=== PATIENT | male | born 1985 | race American Indian/Alaskan Native ===

== ENCOUNTER 2020-08-30 10:35 | Emergency (ER) | payer SELFPAY ==
--- NOTE | 2020-08-30 10:56 | Emergency Department Report ---
ED General Adult HPI - General Stated complaint: RT HAND INJURY Time Seen by Provider: 08/30/20 10:54 - History of Present Illness Initial comments: 35-year-old -[place] male patient presents with complaints of right hand pain after a fall injury yesterday. He rates his current pain is 8/10 in severity and states it worsens with movement and to touch. He denies any numbness/tingling/weakness in his hand or decreased range of motion. - Related Data Previous Rx's Medication Instructions Recorded Last Taken Type Diclofenac Sodium 75 mg PO BID PRN #14 tablet. 08/30/20 Unknown Rx ED Review of Systems ROS: Stated complaint: RT HAND INJURY Other details as noted in HPI Musculoskeletal: joint swelling, arthralgia Skin: denies: change in color Neurological: denies: numbness, paresthesias ED Past Medical Hx - Medications Home Medications: Home Medications Medication Instructions Recorded Confirmed Last Taken Type Diclofenac Sodium 75 mg PO BID PRN #14 tablet. 08/30/20 Unknown Rx ED Physical Exam - General General appearance: alert, in no apparent distress - Head Head exam: Present: atraumatic, normocephalic - Eye Eye exam: Present: normal appearance - ENT ENT exam: Present: mucous membranes moist - Extremities Exam Extremities exam: Present: other (Mild swelling with tenderness to palpation noted to the right fourth and fifth metacarpals without overlying erythema or bruising noted; patient has normal sensation, normal profusion, and normal range of motion of the fingers and palm) - Neurological Exam Neurological exam: Present: alert, oriented X3, normal gait - Psychiatric Psychiatric exam: Present: normal affect, normal mood - Skin Skin exam: Present: warm, dry, intact, normal color. Absent: rash ED Course Vital Signs 08/30/20 11:29 Temperature 98.5 F Pulse Rate 76 Respiratory 18 Rate Blood Pressure 168/94 [Right] O2 Sat by Pulse 96 Oximetry ED Medical Decision Making - Radiology Data Radiology results: report reviewed RIGHT HAND 3 VIEWS INDICATION / CLINICAL INFORMATION: Fall with right third and fourth metacarpal pain. COMPARISON: None available. FINDINGS: BONES / JOINT(S): There are possible old healed fractures of the right fourth and fifth metacarpals. There are moderate degenerative changes involving the fourth metacarpophalangeal joint. I see no evidence of acute fracture or subluxation. SOFT TISSUES: No significant abnormality. - Medical Decision Making 35-year-old -[place] male patient presents with complaints of right hand pain after a fall injury yesterday. He rates his current pain is 8/10 in severity and states it worsens with movement and to touch. He denies any numbness/tingling/weakness in his hand or decreased range of motion. X-rays negative for acute fracture but shows healed prior fractures of the fourth and fifth metacarpals. Patient placed in Jeremie wrap and advised on rice method of treatment. He is to follow-up with orthopedics as needed. Discussed strict return precautions in detail with patient who verbalized understanding. Critical care attestation.: If time is entered above; I have spent that time in minutes in the direct care of this critically ill patient, excluding procedure time. ED Disposition Clinical Impression: Elevated blood pressure reading Sprain of right hand Qualifiers: Encounter type: initial encounter Qualified Code(s): S63.91XA - Sprain of unspecified part of right wrist and hand, initial encounter Disposition: TO HOME OR SELFCARE Is pt being admited?: No Condition: Stable Instructions: Intermetacarpal Sprain Prescriptions: Diclofenac Sodium 75 mg PO BID PRN #14 tablet.dr ANDERSON Reason: pain Referrals: [facility] [Provider Group] - 3-5 Days [facility], [Primary Care Provider] - 2-3 Days (Blood pressure elevated )
--- NOTE | 2020-08-30 11:28 | XRay Report ---
RIGHT HAND 3 VIEWS INDICATION / CLINICAL INFORMATION: Fall with right third and fourth metacarpal pain. COMPARISON: None available. FINDINGS: BONES / JOINT(S): There are possible old healed fractures of the right fourth and fifth metacarpals. There are moderate degenerative changes involving the fourth metacarpophalangeal joint. I see no evid ence of acute fracture or subluxation. SOFT TISSUES: No significant abnormality. ADDITIONAL FINDINGS: None. Signer Name: Vikas Mayfield MD Signed: 08/30/2020 11:24 AM Workstation Name: [id number]
[2020-08-30 11:29] VITALS: BP 168/94
== END 2020-08-30 21:54 | disposition home or self-care (01) ==
LOC: ED 10:35
DX: S63.91XA Sprain of unspecified part of right wrist and hand, initial encounter (principal); R03.0 Elevated blood-pressure reading, without diagnosis of hypertension; Z79.899 Other long term (current) drug therapy; W18.30XA Fall on same level, unspecified, initial encounter; Y93.89 Activity, other specified; Y92.89 Other specified places as the place of occurrence of the external cause; Y99.8 Other external cause status
CPT/HCPCS: 99283